=== PATIENT | male | born 1935 | race Caucasian/White ===

== ENCOUNTER 2017-09-09 14:04 | Emergency (ER) | payer MEDICARE, OTHER ==
[~2017-09-09] VITALS: Ht 185.4 cm; Wt 95.7 kg
[~2017-09-09 14:04] MED LIST: ACIDOPHILUS1 EAC3 PO; ACIDOPHILUS1 EACH; ASPIRIN EC81 M1 PO; ASPIRIN325; AUGMENTIN 875875 MG PO; BACTRIM DS TAB1 EACH PO; CARVEDILOL3.125 MG PO; CHERATUSSIN DA480 ML PO; CLOPIDOGREL; COLACE100 MG PO; COQ-10100 MG PO; CRESTOR5 MG PO; FINASTERIDE5 MG PO; FISH OIL 1,0001 EAC5 PO; FISHOIL; HYDROCODONE-APA1 TA1 PO; HYTRIN 5 M5 MG/1 CA1; HYTRIN 5 M5 MG/1 CAP PO; IMDUR 30 MG TAB30 M1 PO; KEPPRA250 MG PO; KRILL OIL 3001 EACH PO; LEVAQUIN 500 M500 MG PO; LISINOPRIL5 MG PO; LIVALO1 MG PO; MINOCYCLINE HC100 M2 PO; MOVE FREE JOIN1 EACH PO; NAPROSYN500 MG PO; NIACIN 500 MG500 M1 PO; NITROGLYCERIN0.4 MG SUBLING; PLAVIX 75 MG TA75 M1; PLAVIX 75 MG TA75 M1 PO; PRAVASTATIN SOD20 MG PO; SIMVASTATIN20 MG; TOPROL XL25 MG; VITAMIN D3400 UNIT PO; VITAMINC500 PO; XALATAN2.5 ML OPHTHALMIC; ZESTRIL10 MG PO
[2017-09-09 15:48] VITALS: BP 163/96
== END 2017-09-09 15:50 | disposition home or self-care (01) ==
LOC: M.ERS 14:04
DX: S76.012A Strain of muscle, fascia and tendon of left hip, initial encounter (principal); I25.10 Atherosclerotic heart disease of native coronary artery without angina pectoris; I10 Essential (primary) hypertension; E78.00 Pure hypercholesterolemia, unspecified; Z95.5 Presence of coronary angioplasty implant and graft; Z87.442 Personal history of urinary calculi; X50.1XXA Overexertion from prolonged static or awkward postures, initial encounter; Y93.89 Activity, other specified; Y92.89 Other specified places as the place of occurrence of the external cause; Y99.8 Other external cause status